=== PATIENT | female | born 1990 | race Caucasian/White ===

== ENCOUNTER 2017-03-26 20:07 | Emergency (ER) | payer MEDICAID, OTHER ==
[~2017-03-26] VITALS: Ht 157.5 cm; Wt 55.0 kg
[2017-03-26 20:11] VITALS: Ht 157.5 cm; Wt 55.0 kg
[2017-03-26 21:41] LABS: BASOPHIL # 0.1 10^3/ul (0.0-0.1); BASOPHILS % 0.4 % (0.0-2.0); EOSINOPHILS # 0.2 10^3/ul (0.0-0.5); EOSINOPHILS % 1.4 % (0.0-7.0); HEMATOCRIT 36.9 % (37.0-47.0); HEMOGLOBIN 12.9 g/dl (12.0-16.0); LYMPHOCYTES % 35.8 % (15.0-51.0); MEAN CORPUSCULAR HEMOGLOBIN 31.3 pg (29.0-33.0); MEAN CORPUSCULAR VOLUME 89.6 fl (82.0-101.0); MONOCYTE # 0.7 10^3/ul (0.3-0.9); NEUTROPHIL # 6.3 10^3/ul (1.6-7.5); NEUTROPHILS % 56.1 % (39.0-77.0); PLATELET COUNT 322 10^3/UL (140-415); RED BLOOD COUNT 4.12 10^6/ul (4.20-5.40); RED CELL DISTRIBUTION WIDTH 12.3 % (11.5-14.5); WHITE BLOOD COUNT 11.2 10^3/ul (4.8-10.8)
[2017-03-26 22:09] LABS: ALANINE AMINOTRANSFERASE 30 IU/L (13-69); ALBUMIN 3.8 g/dl (3.3-4.9); ALKALINE PHOSPHATASE 74 IU/L (42-121); ANION GAP 11 (8-16); ASPARTATE AMINO TRANSFERASE 28 IU/L (15-46); BILIRUBIN,INDIRECT 0.1 mg/dl (0-1.1); BILIRUBIN,TOTAL 0.1 mg/dl (0.2-1.3); BLOOD UREA NITROGEN 16 mg/dl (7-20); CALCIUM 8.6 mg/dl (8.4-10.2); CARBON DIOXIDE 27 mmol/L (21-31); CHLORIDE 104 mmol/L (97-110); CREATININE 0.74 mg/dl (0.44-1.00); GLUCOSE 98 mg/dl (70-220); POTASSIUM 3.5 mmol/L (3.5-5.1); SODIUM 138 mmol/L (135-144); TOTAL PROTEIN 6.5 g/dl (6.1-8.1)
[2017-03-26 22:13] LABS: ACETAMINOPHEN < 10.0 ug/ml (10.0-30.0); ETHANOL < 10.0 mg/dl; SALICYLATE < 1.0 mg/dl (5.0-30.0)
--- NOTE | 2017-03-26 22:50 | ERD ---
ER Documentation Chief Complaint Date/Time DATE: 03/26/17 TIME: 22:47 Chief Complaint bib ra from street for grave disability, unable to care for self HPI 26-year-old homeless woman brought in by EMS for being homeless. Patient denies having a plan to kill or hurt herself although she does have a history of psychiatric illness and denies currently using medications. Patient denies chest pain or shortness of breath, denies domestic violence, no fevers or chills , no vomiting or diarrhea. ROS All systems reviewed and are negative except as per history of present illness. Medications Home Meds No Active Prescriptions or Reported Meds Allergies Allergies: Coded Allergies: No Known Drug Allergy (Verified Allergy, Unknown, 03/26/17) PMhx/Soc Medical and Surgical Hx: pt denies Medical Hx, pt denies Surgical Hx History of Surgery: No Anesthesia Reaction: No Hx Neurological Disorder: No Hx Respiratory Disorders: No Hx Cardiac Disorders: No Hx Psychiatric Problems: Yes Hx Miscellaneous Medical Probl: No Hx Alcohol Use: Yes Hx Substance Use: Yes Hx Tobacco Use: No Smoking Status: Never smoker FmHx Family History: No diabetes Physical Exam Vitals Vital Signs Date Time Temp Pulse Resp B/P Pulse Ox O2 Delivery O2 Flow Rate FiO2 03/27/17 00:37 98.6 90 20 126/82 99 Room Air 03/26/17 20:11 98.6 85 18 135/82 99 03/26/17 20:11 98.6 81 19 126/86 100 Room Air 03/26/17 20:10 98.1 86 18 109/68 100 Physical Exam GENERAL: Well-developed, well-nourished, anxious appearing, afebrile HEENT: Moist mucous membranes, pink conjunctiva, no cervical spine tenderness or step-off deformities, no goiter, no jaundice or icterus, extraocular movements intact without pain. No submandibular induration, and no pharyngeal erythema NEURO: Alert and oriented 3, cranial nerves II through XII intact bilaterally, pupils equal round reactive to light, no focal deficits or facial asymmetry, sensation intact distally Strength 5/5 in upper and lower extremities bilaterally CARDIAC: Regular rate and rhythm, no murmurs rubs or gallops LUNGS: Clear bilaterally no wheezing crackles or stridor ABDOMEN: Soft nontender, no guarding, no rigidity, no rebound, no psoas sign no obturator sign. Normoactive bowel sounds SKIN: Warm and dry to touch, no abrasions, contusions, or hematomas, no lacerations, no ecchymosis, no target lesions, and without ulcers EXTREMITIES: No clubbing cyanosis or edema, calves are bilaterally symmetrical, no Homans sign, no popliteal cord sign. Distal pulses equal and bilateral PSYCH: Anxious Result Diagram: 03/26/17211803/26/172118 Results 24 hrs Laboratory Tests Test 03/26/17 21:19 03/27/17 00:11 White Blood Count 11.210^3/ul Red Blood Count 4.1210^6/ul Hemoglobin 12.9g/dl Hematocrit 36.9% Mean Corpuscular Volume 89.6fl Mean Corpuscular Hemoglobin 31.3pg Mean Corpuscular Hemoglobin Concent 35.0g/dl Red Cell Distribution Width 12.3% Platelet Count 46458^3/UL Mean Platelet Volume 9.0fl Neutrophils % 56.1% Lymphocytes % 35.8% Monocytes % 6.0% Eosinophils % 1.4% Basophils % 0.4% Nucleated Red Blood Cells % 0.0/100WBC Neutrophils # 6.310^3/ul Lymphocytes # 4.010^3/ul Monocytes # 0.710^3/ul Eosinophils # 0.210^3/ul Basophils # 0.110^3/ul Nucleated Red Blood Cells # 0.010^3/ul Sodium Level 138mmol/L Potassium Level 3.5mmol/L Chloride Level 104mmol/L Carbon Dioxide Level 27mmol/L Anion Gap 11 Blood Urea Nitrogen 16mg/dl Creatinine 0.74mg/dl Glucose Level 98mg/dl Calcium Level 8.6mg/dl Total Bilirubin 0.1mg/dl Direct Bilirubin 0.00mg/dl Indirect Bilirubin 0.1mg/dl Aspartate Amino Transf (AST/SGOT) 28IU/L Alanine Aminotransferase (ALT/SGPT) 30IU/L Alkaline Phosphatase 74IU/L Total Protein 6.5g/dl Albumin 3.8g/dl Globulin 2.70g/dl Albumin/Globulin Ratio 1.40 Serum HCG, Qualitative NEGATIVE Salicylates Level < 1.0mg/dl Acetaminophen Level < 10.0ug/ml Ethyl Alcohol Level < 10.0mg/dl Urine Opiates Screen Negative Urine Barbiturates Negative Urine Amphetamines Screen POSITIVE Urine Benzodiazepines Screen Negative Urine Cocaine Screen Negative Urine Cannabinoids Positive Procedures/MDM CBC and electrolytes were normal, alcohol, aspirin, Tylenol levels were negative , test was negative. Liver function tests were normal. Urine analysis was negative for infection, drug screen positive for methamphetamines. Patient's behavioral symptoms have stabilized while in the department. Patient is medically cleared and appropriate for psychiatric evaluation and work up. No e/o neurologic, toxic, infectious, or metabolic cause. Patient refused tele-psychiatry evaluation despite our attempts. Patient requested discharge. Differential diagnoses considered, included but not limited to acute coronary syndrome, pulmonary embolism, aortic dissection, abdominal aortic aneurysm, sepsis, stroke, meningitis, encephalitis, pneumonia, appendicitis, cholecystitis , bowel obstruction, pyelonephritis, nephrolithiasis, cystitis, as well as metabolic, hematologic, and electrolyte abnormalities. As well as abscess, cellulitis, fractures, and dislocations. Patient feels much better at this time, and vital signs are normal, symptoms have improved. I did give strict instructions to return to the ED if symptoms continue or worsen, patient will otherwise follow-up with primary care physician. Patient understood instructions and agreed to plan. Disclaimer: Inadvertent spelling and grammatical errors are likely due to EHR/ dictation software use and do not reflect on the overall quality of patient care. Also, please note that the electronic time recorded on this note does not necessarily reflect the actual time of the patient encounter. Departure Diagnosis: Primary Impression: Anxiety Additional Impression: Methamphetamine abuse Condition: Good Patient Instructions: Anxiety Reaction MONTANA ALONZO MD Mar 26, 2017 22:50
--- NOTE | 2017-03-27 00:23 | PSY ---
Date/Time of Note Date/Time of Note DATE: 03/27/17 TIME: 00:12 Psychiatric Subjective Eval Consent Pt consented to telemedicine: Yes Subjective Evaluation Patient location: emergency Chief Complaint: bib ra from street for grave disability, unable to care for self Medical history Problems Medical Problems: (1) Anxiety Status: Acute Allergies: Coded Allergies: No Known Drug Allergy (Verified Allergy, Unknown, 03/26/17) Psychiatric Objective Eval Mental Status Examination: Laboratory Results Laboratory Tests Test 03/26/17 21:19 White Blood Count 11.210^3/ul Red Blood Count 4.1210^6/ul Hemoglobin 12.9g/dl Hematocrit 36.9% Mean Corpuscular Volume 89.6fl Mean Corpuscular Hemoglobin 31.3pg Mean Corpuscular Hemoglobin Concent 35.0g/dl Red Cell Distribution Width 12.3% Platelet Count 26421^3/UL Mean Platelet Volume 9.0fl Neutrophils % 56.1% Lymphocytes % 35.8% Monocytes % 6.0% Eosinophils % 1.4% Basophils % 0.4% Nucleated Red Blood Cells % 0.0/100WBC Neutrophils # 6.310^3/ul Lymphocytes # 4.010^3/ul Monocytes # 0.710^3/ul Eosinophils # 0.210^3/ul Basophils # 0.110^3/ul Nucleated Red Blood Cells # 0.010^3/ul Sodium Level 138mmol/L Potassium Level 3.5mmol/L Chloride Level 104mmol/L Carbon Dioxide Level 27mmol/L Anion Gap 11 Blood Urea Nitrogen 16mg/dl Creatinine 0.74mg/dl Glucose Level 98mg/dl Calcium Level 8.6mg/dl Total Bilirubin 0.1mg/dl Direct Bilirubin 0.00mg/dl Indirect Bilirubin 0.1mg/dl Aspartate Amino Transf (AST/SGOT) 28IU/L Alanine Aminotransferase (ALT/SGPT) 30IU/L Alkaline Phosphatase 74IU/L Total Protein 6.5g/dl Albumin 3.8g/dl Globulin 2.70g/dl Albumin/Globulin Ratio 1.40 Serum HCG, Qualitative NEGATIVE Salicylates Level < 1.0mg/dl Acetaminophen Level < 10.0ug/ml Ethyl Alcohol Level < 10.0mg/dl Assessment Additional comments: IDENTIFYING INFORMATION: 26 year old Female patient who is currently located at the hospital and for whom psychiatric consultation was requested. SOURCES OF INFORMATION: The patient who appears to be somewhat reliable and the medical records; the nursing staff. CHIEF COMPLAINT: "I don't want to do it". HISTORY OF PRESENT ILLNESS: The patient was interviewed via telemedicine in the presence of and under the supervision of nursing staff of the hospital. The consent to conducting this interview via telemedicine was obtained by the nursing staff at the hospital. RAEANN Solomon reports that the patient was brought in by the Fire Dept after she was found unconscious/laying on her stomach in the streets. Patient has h/o IVDU. Denies having SI. Is not on a hold. According to the emergency room physician's note, the patient was brought into the hospital for being homeless/grave disability. The patient denied having suicidal ideation or homicidal ideation. The patient reports that she has a history of psychiatric illness but is not taking medication at this time. The patient Declined to Participate in the interview at this time. PAST MEDICAL HISTORY: Unable to assess, because the patient was not willing to participate in the interview. CURRENT MEDICATIONS: Unable to assess, because the patient was not willing to participate in the interview. ALLERGIES TO MEDICATIONS: Unable to assess, because the patient was not willing to participate in the interview. SOCIAL HISTORY: Unable to assess, because the patient was not willing to participate in the interview. ASSESSMENT: Unable to assess, because the patient was not willing to participate in the interview. PLAN: - Medication management: Unable to Provide medication recommendations because the pt refused to do this evaluation over telemedicine. - Disposition: Unable to assess the patient because the pt refused to do this evaluation over telemedicine. Please call back for evaluation if the patient changes her mind and is willing to complete This psychiatric interview. Discussed about the above plan with Dr. Monge. KOKO GOLDBERG MD Mar 27, 2017 00:23
[2017-03-27 00:37] VITALS: BP 126/82; PULSE 90; RESP 20; TEMP 98.6
[2017-03-27 00:51] LABS: BARBITURATES Negative (NEGATIVE); BENZODIAZEPINES Negative (NEGATIVE); CANNABINOIDS Positive (NEGATIVE); COCAINE Negative (NEGATIVE); OPIATES Negative (NEGATIVE)
== END 2017-03-27 00:40 | disposition home or self-care (01) ==
LOC: E/R 20:07
DX: F41.9 Anxiety disorder, unspecified (principal); F15.10 Other stimulant abuse, uncomplicated
CPT/HCPCS: 36415; 80053; 80306; 80307; 84703; 85025; Z7502; 99284

== ENCOUNTER 2018-11-12 01:00 | Inpatient (IN) | payer SELFPAY ==
[2018-11-12 01:17] VITALS: BP 146/80; PULSE 69; RESP 20
[2018-11-12] MEDS ORDERED: METHYLERGONOVINE 0.2 MG INJ IM PRN ×2 (01:30→04:00)
[2018-11-12] MEDS ORDERED: OXYTOCIN 30 UNITS/LR 500 ML IV PRN ×2 (01:30→04:00)
[2018-11-12] MEDS ORDERED: BUTORPHANOL 2 MG INJ IV PRN (01:30)
[2018-11-12] MEDS ORDERED: IBUPROFEN 600 MG TAB PO PRN (01:30)
[2018-11-12] MEDS ORDERED: AMPICILLIN 2 GM/NS (PMX) 100 ML IV ONE (01:30)
[2018-11-12] MEDS ORDERED: MISOPROSTOL 200 MCG TAB PR PRN ×2 (01:30→04:00)
[2018-11-12] MEDS ORDERED: CARBOPROST 250 MCG INJ IM PRN ×2 (01:30→04:00)
[2018-11-12] MEDS ORDERED: LIDOCAINE 1% (MPF) 30 ML INJ INJ PRN (01:30)
[2018-11-12] MEDS ORDERED: OXYTOCIN 30 UNITS/LR 500 ML IV SCH ×3 (01:30→03:39)
[2018-11-12] MEDS ORDERED: CEFAZOLIN 2 GM/50 ML (PMX) 50 ML IVPB ONE (03:00)
--- NOTE | 2018-11-12 03:34 | TRIAGE ---
OB Triage Datetime Report Generated by CPN: 11/12/2018 03:34 Datetime: 11/12/2018 03:22 Stage of : Recovery Datetime: 11/12/2018 03:20 Stage of : Recovery Pain Assessment Pain Scale: 0 Pain Presence: None/Denies Pain Type: N/A Datetime: 11/12/2018 03:05 Stage of : Recovery Pain Assessment Pain Scale: 0 Pain Presence: None/Denies Pain Type: N/A Datetime: 11/12/2018 02:57 Time of Arrival: 11/12/2018 00:37 Arrived By: Ambulance Chief Complaint: RUTURED MEMBRANE AT 0020 Movement: Present Additional Patient Complaints: PARAMEDICS STATED PT. WAS IN LAUNDRYMAT, SOMEBODY SAW HER WATER BROK E AND CALLED FOR HELP PT. DID NOT GIVE THEM HER NAME OR DATE OF , DUE DATE, PER THEM VS WAS STABLE, DENIES DRUG ABU SE OR HISTORY, HOMELESS PER PARAMEDICS, BABY SEEMS FULL TERM Provider Notified: MARY Initial Plan: EFM, CALL MD FOR ORDERS, DR HERNANDEZ CALLED, IN SURGERY NOW Datetime: 11/12/2018 02:50 Stage of : Recovery Pain Assessment Pain Scale: 0 Pain Presence: None/Denies Pain Type: N/A Datetime: 11/12/2018 02:35 Stage of : Recovery Temperature Route: Oral Pain Assessment Pain Scale: 0 Pain Presence: None/Denies Pain Type: N/A Datetime: 11/12/2018 02:24 Vaginal Exam Membranes Ruptured Date/Time: 11/12/2018 00:20 Membranes Rupture Method: Spontaneous Amniotic Fluid Color: Heavy Meconium Amniotic Fluid Amount: Moderate Presentation 'A': Cephalic Datetime: 11/12/2018 00:45 Assessment Type: Triage Maternal Assessment Level of Consciousness: Fully Conscious Headache: Generalized Blurred Vision: No Respiratory Effort: Unlabored; Regular Rhythm; Equal Expansion Nausea/Vomiting: Denies RUQ Epigastric Pain: Denies Lower Extremities Edema: Bilateral Lower Extremities Upper Extremities Edema: None Facial Edema: None Fall Risk Assessment History of Falling: (0) No Secondary Diagnosis: (0) No Ambulatory Aid: (0) Bedrest/Nurse Assist IV Therapy: (0) No Gait: (0) Normal/Bedrest/Immobile Mental Status: KNOWS SHE IN HOSPITAL, BUT KEEP REFUSING TO ANSWER, AND KEEP ASKING VAGUE QUESTIONS, NOT ANSWERING AT ALL
--- NOTE | 2018-11-12 03:50 | HP ---
Date/Time of Note Date/Time of Note DATE: 11/12/18 TIME: 03:42 OB - History Hx of Present Free Text/Dictation 27-year-old 5 para 2 who is homeless, known drug abuser with no care and unknown gestational age and due date presents in second stage of labor Paramedics reported that the patient had spontaneously ruptured membranes prior to coming to the hospital and meconium was noted Patient seems confused and cognitively challenged Patient has had 2 prior normal spontaneous deliveries and 2 elective abortions Care: None Obstetrical Complications: None Medical Complications: Other (History of drug use) Past Family/Social History * Past Medical, Surgical, Family and Obstetric Histories reviewed from chart. OB Admission Exam Vital Signs Vital Signs Vital Signs Date Temp Pulse Resp B/P (MAP) Pulse Ox O2 O2 Flow FiO2 Time Delivery Rate 11/12/18 97.8 69 20 146/80 Room Air 01:17 (102) Physical Exam HEENT: WNL Heart: Rhythm Normal Lungs: Clear, Equal Abdomen: WNL Extremities: Normal Reflexes: Normal Cervical Dilatation: 10cm Effacement: 100% Station: +2 Membranes: Ruptured Amniotic Fluid: Thin Meconium Heart Rate: 140's Accelerations: Accelerations Present Decelerations: No Decelerations Varibility: Moderate Contractions on Admission: < 5 Minutes Apart Intensity: Moderate Last 72 hours Lab Results CBC & BMP 11/12/18 01:15 Liver Function Test 11/12/18 01:15 Alanine Aminotransferase (ALT/SGPT) 18 Albumin 3.2 L Alkaline Phosphatase 483 H Aspartate Amino Transf (AST/SGOT) 27 Direct Bilirubin 0.00 Total Protein 6.5 OB Assessment/Plan Reason for admission: active labor Plan: Expectant Management Other plan: Admit to labor and delivery Antibiotics prophylaxis Pain meds as needed BARRY HERNANDEZ MD Nov 12, 2018 03:50
--- NOTE | 2018-11-12 03:53 | LDN ---
Date/Time of Note Date/Time of Note DATE: 11/12/18 TIME: 03:50 Delivery Summary Weeks of Gestation Unknown gestational age/appears to be full term gestation Placenta Delivered: Spontaneously Meconium: Light Episiotomy: No Laceration repair: Superficial laceration repaired with 3-0 chromic Anesthesia type: None Estimated blood loss: 200 Sponge & Needle done & correct: Yes All needle counts correct: Yes Any foreign bodies felt in the: No Delivery Information Sex Infant Sex: female Apgars 1 Minute: 8 5 Minute: 9 Suctioning Nose & mouth suctioned at breann: Yes Delee suction performed: No Umbilical Cord Umbilical cord with: 3 Vessels Cord presentations: no nuchal cord Cord Blood was obtained: Yes Mother & Baby Disposition Disposition Baby's weight 3735 g/8 pounds 4 ounces Mom & Baby to Maternity; Good: Yes Baby to NICU: No BARRY HERNANDEZ MD Nov 12, 2018 03:53
[2018-11-12] MEDS ORDERED: DIBUCAINE 1% 30 GM OINT TOP PRN (04:00)
[2018-11-12] MEDS ORDERED: ACETAMINOPHEN 325 MG TAB PO PRN ×2 (04:00)
[2018-11-12] MEDS ORDERED: LANOLIN HPA 1 PKT TOP PRN (04:00)
[2018-11-12] MEDS ORDERED: WITCH HAZEL/GLYCERIN PAD PR PRN (04:00)
[2018-11-12] MEDS ORDERED: MAGNESIUM HYDROXIDE 30ML CUP PO PRN (04:00)
[2018-11-12] MEDS ORDERED: ONDANSETRON 4 MG INJ IV PRN (04:00)
[2018-11-12] MEDS ORDERED: BENZOCAINE 20% 56 ML SPRAY TOP PRN (04:00)
[2018-11-12] MEDS ORDERED: SENNA/DOCUSATE NA (8.6MG/50MG) TAB PO PRN (04:00)
[2018-11-12 04:10] VITALS: BP 108/78; PULSE 85; RESP 18
[2018-11-12] MEDS: LACTATED RINGER'S 1,000 ML IV* SCH ×2 (05:02→11:39)
[2018-11-12 05:20] VITALS: BP 110/68; PULSE 84; RESP 19
[2018-11-12] MEDS ORDERED: AMPICILLIN 1 GM/NS (PMX) 50 ML IV SCH (05:30)
[2018-11-12] MEDS ORDERED: CEFAZOLIN 1 GM/50 ML (PMX) 50 ML IVPB SCH ×2 (06:00→20:00)
[2018-11-12 09:30] VITALS: BP 126/78; PULSE 78; RESP 16
--- NOTE | 2018-11-12 15:31 | PSY ---
Date/Time of Note Date/Time of Note DATE: 11/12/18 TIME: 18:26 Psychiatric Subjective Eval Consent Pt consented to telemedicine: Yes Subjective Evaluation Patient location: inpatient History of present illness HPI: 27 yo homeless female, just gave , using methamphetamine and thc though pt has been denying use. MD was consulted. Pt was very irritable, ignored MD. Would occasionally answer questions if nurse would ask them. Pt has been very irritable and uncooperative. HAs not been reporting si to anyone, has been variable cooperative. Nurse asked pt about si in front of MD and pt denies Past Psych Hx: ho substance abuse, unable to obtain info about other types of hx as pt was not cooperative PMHx: jsut gave Meds: none nkda MSE: irritable, would not look at MD, did not speak to MD, said 3 words to deny si, appeared disheveled Imp: 27 yo female uncooperative though there does not appear to be acute safety issue, pt would not indicate if she will breastfeed or not if pt , strongly recommend minimize use of meds otherwise, consider (only if pt not or if there is severe emergency, though benadryl im can be considered firs if absolute emergency) For moderate agitation Zyprexa 5mg po prn For severe agitation chlorpromazine 25mg im prn consider calling CPS as pt has been heavily using drugs and is homeless, pe rnurse report Medical history Problems Medical Problems: (1) Acute psychosis Status: Acute (2) Anxiety Status: Acute (3) Anxiety Status: Acute (4) Methamphetamine abuse Status: Acute (5) Methamphetamine abuse Status: Acute Allergies: Coded Allergies: No Known Drug Allergy (Verified Allergy, Unknown, 03/26/17) Psychiatric Objective Eval Mental Status Examination: Laboratory Results Laboratory Tests Test 11/12/18 01:15 11/12/18 03:50 White Blood Count 18.6 10^3/ul Red Blood Count 3.84 10^6/ul Hemoglobin 10.3 g/dl Hematocrit 32.4 % Mean Corpuscular Volume 84.4 fl Mean Corpuscular Hemoglobin 26.8 pg Mean Corpuscular Hemoglobin Concent 31.8 g/dl Red Cell Distribution Width 13.8 % Platelet Count 292 10^3/UL Mean Platelet Volume 11.3 fl Immature Granulocytes % 1.100 % Neutrophils % 85.0 % Lymphocytes % 7.1 % Monocytes % 6.5 % Eosinophils % 0.1 % Basophils % 0.2 % Nucleated Red Blood Cells % 0.2 /100WBC Immature Granulocytes # 0.200 10^3/ul Neutrophils # 15.8 10^3/ul Lymphocytes # 1.3 10^3/ul Monocytes # 1.2 10^3/ul Eosinophils # 0.0 10^3/ul Basophils # 0.0 10^3/ul Nucleated Red Blood Cells # 0.0 10^3/ul Prothrombin Time 12.0 Sec Prothrombin Time Ratio 0.9 INR International Normalized Ratio 0.88 Activated Partial Thromboplast Time 25.6 Sec Sodium Level 134 mmol/L Potassium Level 3.9 mmol/L Chloride Level 102 mmol/L Carbon Dioxide Level 25 mmol/L Anion Gap 7 Blood Urea Nitrogen 8 mg/dl Creatinine 0.65 mg/dl Est Glomerular Filtrat Rate mL/min > 60 mL/min Glucose Level 110 mg/dl Calcium Level 8.8 mg/dl Total Bilirubin 0.1 mg/dl Direct Bilirubin 0.00 mg/dl Indirect Bilirubin 0.1 mg/dl Aspartate Amino Transf (AST/SGOT) 27 IU/L Alanine Aminotransferase (ALT/SGPT) 18 IU/L Alkaline Phosphatase 483 IU/L Total Protein 6.5 g/dl Albumin 3.2 g/dl Globulin 3.30 g/dl Albumin/Globulin Ratio 0.96 Rapid Plasma Reagin NONREACTIVE Hepatitis B Surface Antigen NEGATIVE HIV (1&2) Antibody NEGATIVE Urine Color COLORLESS Urine Clarity CLEAR Urine pH 7.0 Urine Specific Gypsy 1.002 Urine Ketones NEGATIVE mg/dL Urine Nitrite NEGATIVE mg/dL Urine Bilirubin NEGATIVE mg/dL Urine Urobilinogen NEGATIVE mg/dL Urine Leukocyte Esterase NEGATIVE Chato/ul Urine Hemoglobin NEGATIVE mg/dL Urine Glucose NEGATIVE mg/dL Urine Total Protein NEGATIVE mg/dl Urine Opiates Screen Negative Urine Barbiturates Negative Urine Amphetamines Screen Positive Urine Benzodiazepines Screen Negative Urine Cocaine Screen Negative Urine Cannabinoids Positive Assessment and Plan Recommendation/Plan Multiple antipsychotics: No Discharge Disposition: Community Legal Status: Voluntary ADDIEWES REYESYohannes Nov 12, 2018 15:31
[2018-11-12 16:15] VITALS: BP 117/61; PULSE 87; RESP 16
[2018-11-12] MEDS: IBUPROFEN 600 MG TAB PO PRN ×2 (16:38→22:32)
[2018-11-12 21:00] VITALS: BP 150/67; PULSE 77; RESP 19
[2018-11-12] MEDS ORDERED: BISMUTH SUBSALICYLATE 240 ML BTL PO PRN (22:30)
[2018-11-13 05:20] VITALS: BP 116/63; PULSE 73; RESP 19
[2018-11-13] MEDS: IBUPROFEN 600 MG TAB PO PRN (05:39)
--- NOTE | 2018-11-14 12:20 | DELSUM ---
Delivery Summary A-C Datetime Report Generated by CPN: 11/14/2018 12:19 DELIVERY PERSONNEL Art Instructor: Tersigni, Mikala MATERNAL INFORMATION Delivery Anesthesia: None Medications in Delivery: LR with 30 units of pitocin, stadol 2 mg Delivery QBL (ml): 200 Placenta Cultured: Yes Maternal Complications: Other Other Maternal Complications: no care RN Comments: homeless LABOR SUMMARY No. Babies in Womb: 1 Attempted: No Labor Anesthesia: None LABOR INFORMATION Reason for Induction: Not Applicable Onset of Labor: 11/12/2018 00:20 Complete Dilatation: 11/12/2018 00:50 Oxytocin: N/A Group B Beta Strep: Not Done Antibiotics # of Doses: 0 Steroids Given: None Reason Steroids Not Administered: Not Applicable MEMBRANES Membranes Rupture Method: Spontaneous Rupture of Membranes: 11/12/2018 00:20 Length of Rupture (hr): 1.48 Amniotic Fluid Color: Heavy Meconium Amniotic Fluid Amount: Moderate STAGES OF LABOR Stage 1 hr: 0 Stage 1 min: 30 Stage 2 hr: 0 Stage 2 min: 59 Stage 3 hr: 0 Stage 3 min: 26 Total Time in Labor hr: 1 Total Time in Labor min: 55 VAGINAL DELIVERY Episiotomy: None Laceration Extension: First Degree Laceration Type: Perineal Laceration Repair: Yes Initial Vag Sponge Count: 10 Final Vag Sponge Count: 10 Initial Vag Sharps Count: 2 Final Vag Sharps Count: 2 Sponge Count Correct: Yes; Vaginal Sweep Performed Sharps Count Correct: Yes BABY A INFORMATION Infant Delivery Date/Time: 11/12/2018 01:49 Method of Delivery: Vaginal Born in Route : No : N/A Forceps: N/A Vacuum Extraction: N/A Shoulder Dystocia : N/A SHOULDER DYSTOCIA BABY A Infant Delivery Date/Time: 11/12/2018 01:49 PRESENTATION/POSITION BABY A Presentation: Cephalic Cephalic Presentation: Vertex Vertex Position: Left Occipital Anterior Breech Presentation: N/A PLACENTA INFORMATION BABY A Placenta Delivery Time : 11/12/2018 02:15 Placenta Method of Delivery: Expressed Placenta Status: Delivered SCORES BABY A Heart Rate 1 min: >100 bpm Resp Effort 1 min: Good Cry Reflex Irritability 1 min: Cough/Sneeze/Pulls Away Muscle Tone 1 min: Active Motion Color 1 min: Blue/Pale Resuscitation Effort 1 min: Tactile Stimulation SCORE 1 MIN: 8 Heart Rate 5 min: >100 bpm Resp Effort 5 min: Good Cry Reflex Irritability 5 min: Cough/Sneeze/Pulls Away Muscle Tone 5 min: Active Motion Color 5 min: Body Mccoll, Extremit Blue Resuscitation Effort 5 min: Tactile Stimulation SCORE 5 MIN: 9 INFORMATION BABY A Outcome : Liveborn Infant Condition : Stable Sex: Female IDENTIFICATION/MEDS BABY A ID Band Number: [id number] ID Band Location: Right Leg; Left Arm Sensor Applied: No Vitamin K Given : Not Given Erythromycin Given: Not Given WEIGHT/LENGTH BABY A Infant Birthweight (gm): 3735 Infant Weight (lb): 8 Weight (oz): 4 Length (in): 19.25 Infant Length (cm): 48.90 CORD INFORMATION BABY A No. Cord Vessels: 3 Nuchal Cord : N/A Cord Blood Taken: Yes Suction: Mouth; Nose ASSESSMENT BABY A Complications: Meconium Physical Findings at Delivery: Within Normal Limits Respirations: Appears Normal Layboy Tender/ALS Called : Yes Care By: NICU Team Transferred To: NICU
== END 2018-11-13 12:18 | disposition left against medical advice (07) | DRG 806 ==
LOC: L-D 01:00 → PP1 04:07
PROVIDERS: ADMIT Obstetrics & Gynecology Gynecology; ATTEND Obstetrics & Gynecology Gynecology
PROC: 10E0XZZ Delivery of Products of Conception, External Approach (ICD-10-PCS; principal; 2018-11-12)
PROC: 0HQ9XZZ Repair Perineum Skin, External Approach (ICD-10-PCS; 2018-11-12)
DX: O77.0 Labor and delivery complicated by meconium in amniotic fluid (principal); O99.324 Drug use complicating childbirth; Z37.0 Single live birth; O70.0 First degree perineal laceration during delivery; F15.10 Other stimulant abuse, uncomplicated; F12.10 Cannabis abuse, uncomplicated; R45.1 Restlessness and agitation; Z3A.00 Weeks of gestation of pregnancy not specified; Z59.0 Homelessness
CPT/HCPCS: 80053; 80307; 81003; 85025; 85610; 85730; 86592; 86703; 86762; 86850; 86900; 86901; 87340; 88307; 99464; J0595; J0690; J2590; J7120